=== PATIENT | female | born 1970 | race Caucasian/White ===

== ENCOUNTER 2017-08-07 10:39 | Day surgery (SDC) | payer OTHER ==
[~2017-08-07] VITALS: Ht 167.6 cm; Wt 113.1 kg
[2017-08-07] MEDS ORDERED: OMEPRAZOLE (11:22)
[2017-08-07 11:24] VITALS: Ht 167.6 cm; Wt 113.1 kg
[2017-08-07] MEDS ORDERED: PROPOFOL 60 ML ONE (13:25)
[2017-08-07] MEDS ORDERED: LIDOCAINE 2% (SDV) 5 ML INJ ONE (13:25)
--- NOTE | 2017-08-07 13:53 | OPPN ---
Date/Time of Note Date/Time of Note DATE: 08/07/17 TIME: 13:52 Operative Report Preoperative Diagnosis Abdominal pain History of diarrhea Postoperative Diagnosis Gastritis Internal hemorrhoids Operation/Procedure Performed Esophagogastroduodenoscopy and biopsy Colonoscopy and biopsy Surgeon see signature line campus administrative assistant None Anesthesia: MAC Estimated blood loss: none Transfusion Required none Specimen Gastric mucosal biopsy Random colon biopsy Grafts/Implants none Complications none KELLY MURILLO MD Aug 07, 2017 13:53
[2017-08-07 14:15] VITALS: BP 140/93; RESP 14
--- NOTE | 2017-08-07 16:32 | GILP ---
DATE OF PROCEDURE: 08/07/2017 PROCEDURE PERFORMED: 1. Esophagogastroduodenoscopy and biopsy. 2. Colonoscopy and biopsy. SURGEON: Rick Man MD. PREOPERATIVE DIAGNOSES: 1. Abdominal pain. 2. History of diarrhea. POSTOPERATIVE DIAGNOSES: 1. Gastritis with erosions. 2. Gastric mucosal biopsies were taken for Helicobacter pylori test. 3. Colonoscopy all the way to the cecum. 4. Internal hemorrhoids. 5. Random biopsies were taken to rule out microscopic colitis. INDICATION: Ms. Imani Barajas is a 46-year-old female patient who had upper abdominal pain, not responding to therapy. The patient also had lower abdominal pain and history of diarrhea. He had abdominal CT scan, and it was suspicious for colitis. The patient was scheduled for endoscopy and colonoscopy for further evaluation. The procedures and possible complications were well explained to the patient. She understood and consented to the procedure. DESCRIPTION OF PROCEDURE: Under influence of anesthesia, the gastroscope was carefully introduced into the esophagus. Under direct vision, it was advanced to the stomach, into the pylorus, into the duodenal bulb, and descending duodenum. FINDINGS: Esophagus, mucosa was normal. Stomach, the patient had gastritis with erosions. Gastric mucosal biopsies were taken for Helicobacter pylori test. Duodenum was normal. The colonoscope was carefully introduced in the rectum. Under direct vision, it was advanced all the way to the cecum. The colonic mucosa was normal. Random biopsies were taken to rule out microscopic colitis. The patient was noted to have internal hemorrhoids. She tolerated the procedures very well. There were no complication from the procedures. At the end of procedure, she was awake with stable vital signs, and she was discharged home in the care of her family. IMPRESSION: Please see postop diagnoses. PLAN: 1. Omeprazole 40 mg p.o. q.a.m. 2. Await histopathology reports. Dictated By: MD SANGEETA Harley/jerson/robert /Document#: [id number]
== END 2017-08-07 17:32 | disposition home or self-care (01) ==
LOC: GIL 10:39
PROVIDERS: ATTEND Internal Medicine Gastroenterology
DX: K29.70 Gastritis, unspecified, without bleeding (principal); K64.8 Other hemorrhoids; I10 Essential (primary) hypertension; E66.01 Morbid (severe) obesity due to excess calories; Z68.41 Body mass index [BMI] 40.0-44.9, adult
CPT/HCPCS: 43239; 45380; 84703; 87081; 88305; Z7610